=== PATIENT | female | born 1990 | race Caucasian/White ===

== ENCOUNTER 2023-01-20 10:35 | Emergency (ER) | payer OTHER, SELFPAY ==
[2023-01-20 11:19] VITALS: BP 148/104; PULSE 76; RESP 18; TEMP 36.3; O2SAT 100
--- NOTE | 2023-01-20 11:19 | ED_ITS ---
HPI - Abdominal Pain General Chief Complaint: Urogenital-Female <ALISE Tapia Last Filed: 01/20/23 11:22> Stated Complaint: Abdominal & Ovary Pain <ALISE Tapia Last Filed: 01/20/23 11:22> Time Seen by Provider: 01/20/23 11:47 <Isabella Arevalo NP - Last Filed: 01/20/23 11:22> Source: patient, RN notes reviewed and old records reviewed <CHANDLER Allen Last Filed: 01/20/23 17:58> Mode of arrival: ambulatory <CHANDLER Allen Last Filed: 01/20/23 17:58> History of Present Illness HPI narrative: 32-year-old female with no significant past medical history presenting to the ED complaining of vaginal irritation/pruritus x2 days. Admits was unfaithful. Patient sexually active with 1 partner, however concern for STI. Denies new/changed vaginal discharge or noted lesions or bleeding. Denies abdominal pain, flank pain, dysuria/hematuria, fever <CHANDLER Allen Last Filed: 01/20/23 17:58> Related Data Home Medications: Previous Rx's Medication Instructions Recorded doxycycline hyclate 100 mg tablet 100 mg PO BID 7 days #14 tabs 01/20/23 fluconazole 150 mg tablet 150 mg PO DAILY #1 tab 01/20/23 (Diflucan) metronidazole 500 mg tablet 500 mg PO BID 7 days #14 tabs 01/20/23 <ALISE Tapia Last Filed: 01/20/23 11:22> Allergies/Adverse Reactions: Allergies Allergy/AdvReac Type Severity Reaction Status Date / Time No Known Allergies Allergy Verified 01/20/23 11:25 <ALISE Tapia Last Filed: 01/20/23 11:22> Review of Systems Review of Systems Constitutional: No Fever, No Chills, No Fatigue, No Malaise ENT/Mouth: No Ear Pain, No Nasal Congestion, No sore throat, No Rhinorrhea, No Swallowing Difficulty Eyes: No Eye Pain, No Swelling, No Redness Cardiovascular: No Chest Pain, No SOB Respiratory: No Cough, No Sputum, No Dyspnea Gastrointestinal: No Nausea, No Vomiting, No Diarrhea, No Constipation, No Abdominal pain Genitourinary: + vaginal irritation/pruritus, No irregular bleeding, No Dysuria, No Hematuria, No Urinary Incontinence/retention, No Flank Pain Skin: No Skin Lesions, No rash Neuro: No Weakness, No Headache <CHANDLER Allen - Last Filed: 01/20/23 17:58> Yes all other systems are reviewed and are negative <CHANDLER Allen - Last Filed: 01/20/23 17:58> Constitutional: Reports as per HPI <CHANDLER Allen - Last Filed: 01/20/23 17:58> [facility] [place] Past Medical History Attestation statement: The following information was validated with the patient. <CHANDLER Allen - Last Filed: 01/20/23 17:58> Source: old records reviewed <CHANDLER Allen - Last Filed: 01/20/23 17:58> Social History Social History: Social History Advance Directives: No <Isabella Arevalo NP - Last Filed: 01/20/23 11:22> Physical Exam ED Vital Signs: Vital Signs - 24 hr 01/20/23 11:19 01/20/23 13:10 Temperature 97.4 F Pulse Rate 76 54 Respiratory Rate 18 20 Blood Pressure 148/104 H 128/89 Pulse Oximetry 100 100 Oxygen Delivery Method Room Air Room Air BMI result Body Mass Index 30.0 <Isabella Arevalo NP - Last Filed: 01/20/23 11:22> Vital Signs - 24 hr 01/20/23 11:19 01/20/23 13:10 Temperature 97.4 F Pulse Rate 76 54 Respiratory Rate 18 20 Blood Pressure 148/104 H 128/89 Pulse Oximetry 100 100 Oxygen Delivery Method Room Air Room Air BMI result Body Mass Index 30.0 <CHANDLER Allen - Last Filed: 01/20/23 17:58> Const General: cooperative, healthy appearing and no acute distress <CHANDLER Allen Last Filed: 01/20/23 17:58> Orientation/consciousness: patient oriented x3 <CHANDLER Allen - Last Filed: 01/20/23 17:58> Limitations: no limitations <Shannon Moseley PA - Last Filed: 01/20/23 17:58> HENMT Head: Yes normal to inspection and Yes atraumatic <Shannon Moseley PA - Last Filed: 01/20/23 17:58> Ears: hearing grossly normal bilaterally <Shannon Moseley PA - Last Filed: 01/20/23 17:58> General nose exam: Normal external nose present <Shannon Moseley PA - Last Filed: 01/20/23 17:58> Face and sinus: Yes normal facial exam <Shannon Moseley PA - Last Filed: 01/20/23 17:58> Eyes General: appearance normal, both eyes and all related structures <Shannon Moseley PA - Last Filed: 01/20/23 17:58> EOM: EOMs intact bilaterally <Shannon Moseley PA - Last Filed: 01/20/23 17:58> Neck Neck: Yes normal visual inspection and Yes no meningeal signs <Shannon Moseley PA - Last Filed: 01/20/23 17:58> Resp Effort & Inspection: normal respiratory effort and no respiratory distress <Shannon Moseley PA - Last Filed: 01/20/23 17:58> Cardio Rate: regular rate <Shannon Moseley PA - Last Filed: 01/20/23 17:58> Heart sounds: S1 normal heart sound present and S2 normal heart sound present <Shannon Moseley PA - Last Filed: 01/20/23 17:58> GI Inspection: Yes normal to inspection <Shannon Moseley PA - Last Filed: 01/20/23 17:58> Palpation (GI): Soft to palpation, nontender, no guarding and not rigid <Shannon Moseley PA - Last Filed: 01/20/23 17:58> General: Yes no CVA tenderness <Shannon Moseley PA - Last Filed: 01/20/23 17:58> External Female Exam: normal external appearance <Shannon Moseley PA - Last Filed: 01/20/23 17:58> Speculum Exam - Vagina: abnormal vaginal discharge white, clear and avery, no lesions, No vaginal bleeding and nontender <CHANDLER Allen - Last Filed: 01/20/23 17:58> Speculum Exam - Cervix: normal appearance of the cervix <CHANDLER Allen - Last Filed: 01/20/23 17:58> OB/external & speculum: No vaginal bleeding <CHANDLER Allen - Last Filed: 01/20/23 17:58> Back/Spine/Pelvis Back: no CVA tenderness <CHANDLER Allen - Last Filed: 01/20/23 17:58> Skin Rashes: no rashes <CHANDLER Allen - Last Filed: 01/20/23 17:58> Wounds: no wounds <CHANDLER Allen - Last Filed: 01/20/23 17:58> Neuro General: patient oriented x3, tone normal and no meningeal signs <CHANDLER Allen - Last Filed: 01/20/23 17:58> Gait exam (Neuro): Normal gait present <CHANDLER Allen - Last Filed: 01/20/23 17:58> Extrem General: Yes normal to inspection <CHANDLER Allen - Last Filed: 01/20/23 17:58> Course Course Course Narrative: This is a rapid medical exam. Deferred additional HPI, ROS, PE to primary provider. 32 yo female healthy here with complaints of vaginal irritation/itching, no vaginal discharge/urinary symptoms/rashes. Recently found out her partner has been with other people. WIll obtain UA, ur preg, CT NG, BV panel. VSS <Isabella Arevalo NP - Last Filed: 01/20/23 11:22> This is a rapid medical exam. Deferred additional HPI, ROS, PE to primary provider. 32 yo female healthy here with complaints of vaginal irritation/itching, no vaginal discharge/urinary symptoms/rashes. Recently found out her partner has been with other people. WIll obtain UA, ur preg, CT NG, BV panel. VSS -urine negative. UA not infected/contaminated Results discussed with patient including worrisome signs and symptoms and strict return precautions, and when to return to the emergency department. They verbalized understanding and feel safe for discharge at this time. <CHANDLER Allen - Last Filed: 01/20/23 17:58> Medical Decision Making Medical Decision Making MDM Narrative: 32-year-old female with no significant past medical history presenting to the ED complaining of vaginal irritation/pruritus x2 days. On exam hypertensive, anxious, nontoxic appearing, abdomen soft/nontender, on pelvic exam white/yellow/avery milky vaginal discharge noted, no lesions, no bleeding. Concern for UTI vs STI vs vaginitis. Lower suspicion for ovarian torsion/cyst, renal stone/pyelo or TOA Discussed with patient empiric STI treatment which she is agreeable to, will receive IM Rocephin, p.o. doxycycline, p.o. Flagyl, p.o. Diflucan Plan: UA, STI testing Please refer to course for remaining clinical decision making, interpretation of labs/imaging results, and discussions with consultants and/or family members. <CHANDLER Allen - Last Filed: 01/20/23 17:58> Differential Diagnosis Differential Diagnoses: The differential diagnosis associated with the presentation includes <CHANDLER Allen - Last Filed: 01/20/23 17:58> As above <CHANDLER Allen - Last Filed: 01/20/23 17:58> Lab Data MDM Lab Attestation statement: I reviewed the patient's lab results. <CHANDLER Allen - Last Filed: 01/20/23 17:58> Labs: Lab Results 01/20/23 01/20/23 01/20/23 Range/Units 11:56 11:56 12:01 Urine Color Yellow Urine Appearance Cloudy Urine pH 8.5 (5.0-9.0) Ur Specific [place] 1.025 (1.005-1.025) Urine Protein Negative (Neg-Trace) mg/dL Urine Glucose (UA) Negative (Negative) mg/dL Urine Ketones Negative (Negative) mg/dL Urine Blood Negative (Negative) Urine Nitrite Negative (Negative) Ur Leukocyte Esterase Small (1+) H (Negative) Urine RBC 3-5 H (0-2) /HPF Urine WBC 0-5 (0-5) /HPF Ur Squamous Epith Cells 6-10 (0-2) /HPF Urine Bacteria None Seen (None Seen) Hyaline Casts 0-2 (0-2) /LPF Urine Test NEGATIVE (NEGATIVE) Chlam trachomat DNA PCR NOT DETECTED (Not Detect.) N.gonorrhoeae DNA (PCR) NOT DETECTED (Not Detect.) 01/20/23 Range/Units 13:00 Urine Color Urine Appearance Urine pH (5.0-9.0) Ur Specific [place] (1.005-1.025) Urine Protein (Neg-Trace) mg/dL Urine Glucose (UA) (Negative) mg/dL Urine Ketones (Negative) mg/dL Urine Blood (Negative) Urine Nitrite (Negative) Ur Leukocyte Esterase (Negative) Urine RBC (0-2) /HPF Urine WBC (0-5) /HPF Ur Squamous Epith Cells (0-2) /HPF Urine Bacteria (None Seen) Hyaline Casts (0-2) /LPF Urine Test (NEGATIVE) Chlam trachomat DNA PCR Cancelled (Not Detect.) N.gonorrhoeae DNA (PCR) Cancelled (Not Detect.) <Isabella Arevalo, [employer] - Last Filed: 01/20/23 11:22> Lab Results 01/20/23 01/20/23 01/20/23 Range/Units 11:56 11:56 12:01 Urine Color Yellow Urine Appearance Cloudy Urine pH 8.5 (5.0-9.0) Ur Specific [place] 1.025 (1.005-1.025) Urine Protein Negative (Neg-Trace) mg/dL Urine Glucose (UA) Negative (Negative) mg/dL Urine Ketones Negative (Negative) mg/dL Urine Blood Negative (Negative) Urine Nitrite Negative (Negative) Ur Leukocyte Esterase Small (1+) H (Negative) Urine RBC 3-5 H (0-2) /HPF Urine WBC 0-5 (0-5) /HPF Ur Squamous Epith Cells 6-10 (0-2) /HPF Urine Bacteria None Seen (None Seen) Hyaline Casts 0-2 (0-2) /LPF Urine Test NEGATIVE (NEGATIVE) Chlam trachomat DNA PCR NOT DETECTED (Not Detect.) N.gonorrhoeae DNA (PCR) NOT DETECTED (Not Detect.) 01/20/23 Range/Units 13:00 Urine Color Urine Appearance Urine pH (5.0-9.0) Ur Specific [place] (1.005-1.025) Urine Protein (Neg-Trace) mg/dL Urine Glucose (UA) (Negative) mg/dL Urine Ketones (Negative) mg/dL Urine Blood (Negative) Urine Nitrite (Negative) Ur Leukocyte Esterase (Negative) Urine RBC (0-2) /HPF Urine WBC (0-5) /HPF Ur Squamous Epith Cells (0-2) /HPF Urine Bacteria (None Seen) Hyaline Casts (0-2) /LPF Urine Test (NEGATIVE) Chlam trachomat DNA PCR Cancelled (Not Detect.) N.gonorrhoeae DNA (PCR) Cancelled (Not Detect.) <CHANDLER Allen - Last Filed: 01/20/23 17:58> External Record Review External record reviewed: Inpatient record, Office record, Outpatient record, Prior outpatient labs, Prior outpatient radiology, Primary care record and Outside ED record <CHANDLER Allen - Last Filed: 01/20/23 17:58> Tests considered The following testing was considered but not selected: As above <CHANDLER Allen - Last Filed: 01/20/23 17:58> Prescription Management I considered prescription management with: Antibiotic <CHANDLER Allen - Last Filed: 01/20/23 17:58> Medications Administered Discontinued Medications Generic Name Dose Route Start Last Admin Trade Name Freq PRN Reason Stop Dose Admin Ceftriaxone Sodium 500 mg/ 0 mg 01/20/23 12:55 01/20/23 13:33 Lidocaine HCl 1 ml IM 01/20/23 12:56 1 kit ONCE ONE Administration Doxycycline Monohydrate 100 mg 01/20/23 12:55 01/20/23 13:33 Doxycycline Monohydrate 100 Mg Capsule PO 01/20/23 12:56 100 mg ONCE ONE Administration Fluconazole 150 mg 01/20/23 12:55 01/20/23 13:33 Fluconazole 150 Mg Tablet PO 01/20/23 12:56 150 mg ONCE ONE Administration Metronidazole 500 mg 01/20/23 12:55 01/20/23 13:33 Metronidazole 500 Mg Tablet PO 01/20/23 12:56 500 mg ONCE ONE Administration <Isabella Arevalo NP - Last Filed: 01/20/23 11:22> Medications Administered Discontinued Medications Generic Name Dose Route Start Last Admin Trade Name Freq PRN Reason Stop Dose Admin Ceftriaxone Sodium 500 mg/ 0 mg 01/20/23 12:55 01/20/23 13:33 Lidocaine HCl 1 ml IM 01/20/23 12:56 1 kit ONCE ONE Administration Doxycycline Monohydrate 100 mg 01/20/23 12:55 01/20/23 13:33 Doxycycline Monohydrate 100 Mg Capsule PO 01/20/23 12:56 100 mg ONCE ONE Administration Fluconazole 150 mg 01/20/23 12:55 01/20/23 13:33 Fluconazole 150 Mg Tablet PO 01/20/23 12:56 150 mg ONCE ONE Administration Metronidazole 500 mg 01/20/23 12:55 01/20/23 13:33 Metronidazole 500 Mg Tablet PO 01/20/23 12:56 500 mg ONCE ONE Administration <CHANDLER Allen - Last Filed: 01/20/23 17:58> Discharge Plan Discharge Clinical Impression: Sexually transmitted disease (STD), Vaginal discharge <Isabella Arevalo NP - Last Filed: 01/20/23 11:22> Patient Disposition: Home, Self-Care <Isabella Arevalo NP - Last Filed: 01/20/23 11:22> Instructions: Vaginal Discharge (ED) <Isabella Arevalo NP - Last Filed: 01/20/23 11:22> Additional Instructions: Retested you for sexually transmitted diseases today. If you desire HIV/syphilis or herpes testing please follow-up with your OBGYN or [facility] The results for these cultures will be back in 2-3 days, we will contact you with positive results only. Please refrain from any sexual contact until you know the results of these tests. Inform her partners if anything is positive Finish antibiotics until completion If symptoms persist or worsen, you developed abdominal or back pain, fever or worsening discharge return to the emergency department Doxycycline, Flagyl, and Diflucan will treat sexually transmitted infections/cc infection, take as prescribed <Isabella Arevalo NP - Last Filed: 01/20/23 11:22> Prescriptions: New doxycycline hyclate 100 mg tablet 100 mg PO BID 7 Days Qty: 14 0RF metronidazole 500 mg tablet 500 mg PO BID 7 Days Qty: 14 0RF fluconazole [Diflucan] 150 mg tablet 150 mg PO DAILY Qty: 1 0RF Rx Instructions: Take in 3 days if you still have symptoms <Isabella Arevalo NP - Last Filed: 01/20/23 11:22> Referrals: [facility] [place]] [facility] [Outside] <Isabella Arevalo NP - Last Filed: 01/20/23 11:22> Interventions: ED Discharge Assessment Last Done: 01/20/23 13:58 <Isabella Arevalo NP - Last Filed: 01/20/23 11:22> Discharge Date/Time: 01/20/23 13:58 <Isabella Arevalo NP - Last Filed: 01/20/23 11:22>
[2023-01-20 12:18] LABS: Appearance Urine Cloudy; Color Urine Yellow; Glucose Urine UA Negative (Negative); Leukocyte Esterase Urine Small (1+) (Negative); Nitrite Urine Negative (Negative); PH 8.5 (5.0-9.0); Specific Gravity - Urine 1.025 (1.005-1.025); UMIC TRIGGER UACC YES; Urine Blood Negative (Negative); Urine Ketones Negative (Negative); Urine Protein Negative (Neg-Trace)
[2023-01-20 12:21] LABS: UPreg QC Valid YES; Urine Pregnancy NEGATIVE (NEGATIVE)
[2023-01-20 12:30] LABS: Bacteria Urine None Seen (None Seen); Hyaline Casts Urine 0-2 /LPF (0-2); UACC Culture Trigger YES; WBC Urine 0-5 /HPF (0-5)
[2023-01-20 13:10] VITALS: BP 128/89; PULSE 54; RESP 20; O2SAT 100
[2023-01-20] MEDS: cefTRIAXone sodium 500 MG, Lidocaine HCl 1 % MPF 1 ML IM (13:33)
[2023-01-20] MEDS: Doxycycline Monohydrate 100 MG CAPSULE PO (13:33)
[2023-01-20] MEDS: metroNIDAZOLE 500 MG TABLET PO (13:33)
[2023-01-20] MEDS: Fluconazole 150 MG TABLET PO (13:33)
--- NOTE | 2023-01-20 13:57 | PC.NURSE ---
patient medicated per MAR. patient awaiting transportation home.
[2023-01-20 14:22] LABS: CT PCR NOT DETECTED (Not Detect.); NG PCR NOT DETECTED (Not Detect.)
[2023-01-21 10:11] LABS: BV Int Neg Control Negative (Negative); BV Int Pos Control Positive (Positive)
== END 2023-01-20 13:58 | disposition home or self-care (01) ==
PROVIDERS: Nurse Practitioner Family; Physician Assistant; Emergency Provider Student in an Organized Health Care Education/Training Program
DX: N89.8 Other specified noninflammatory disorders of vagina (principal); Z20.2 Contact with and (suspected) exposure to infections with a predominantly sexual mode of transmission
CPT/HCPCS: 0353U; 81001; 81025; 87086; 87480; 87510; 87660; 96372; 99283; 99284; J0696